=== PATIENT | male | born 1970 | race Caucasian/White ===

== ENCOUNTER 2019-05-13 00:42 | Emergency (ER) | payer OTHER ==
[~2019-05-13] VITALS: Ht 180.3 cm; Wt 95.3 kg
[~2019-05-13 00:42] MED LIST: ALEVE220 MG PO; FLEXERIL PO; NORCO 5-325 TA1 EACH PO
[2019-05-13] MEDS ORDERED: PRILOSEC OTC20 MG PO (00:54)
[2019-05-13] MEDS ORDERED: TYLENOL PM (00:55)
[2019-05-13 01:01] LABS: URINE BILIRUBIN NEGATIVE (Negative); URINE BLOOD TRACE (Negative); URINE CLARITY CLEAR; URINE COLOR YELLOW; URINE GLUCOSE-RANDOM NEGATIVE (Negative); URINE KETONES NEGATIVE (Negative); URINE LEUKOCYTES-REFLEX NEGATIVE (Negative); URINE NITRITE-REFLEX NEGATIVE (Negative); URINE PROTEIN NEGATIVE (Negative); URINE SPECIFIC GRAVITY 1.025 (1.005-1.030); URINE UROBILINOGEN 0.2 E.U./dl (0.2-1.0)
[2019-05-13] MEDS ORDERED: NORCO 7.5-3251 EACH PO (02:25)
[2019-05-13 02:40] VITALS: BP 128/73
== END 2019-05-13 02:43 | disposition home or self-care (01) ==
LOC: M.ERS 00:42
PROVIDERS: Emergency Medicine
DX: R07.81 Pleurodynia (principal); R31.9 Hematuria, unspecified; F17.210 Nicotine dependence, cigarettes, uncomplicated; Z88.6 Allergy status to analgesic agent; Z88.5 Allergy status to narcotic agent

== ENCOUNTER 2019-08-12 09:28 | Emergency (ER) | payer OTHER ==
[~2019-08-12] VITALS: Ht 180.3 cm; Wt 95.3 kg
[~2019-08-12 09:28] MED LIST changes: +NORCO 7.5-3251 EACH PO; +PRILOSEC OTC20 MG PO; +TYLENOL PM
[2019-08-12 10:55] VITALS: BP 130/88
--- NOTE | 2019-08-13 13:09 | EKG ---
[place] [id number] ELECTROCARDIOGRAM REPORT Name: AYSHA WATSON Room: [facility]#: [id number] Admission: 08/12/19 Attend Phys: Discharge: 08/12/19 Date of : 70 Report #: [id number] THIS REPORT FOR: //name// [facility] ED Test Date: 2019-08-12 Test Time: 09:58:20 Pat Name: AYSHA WATSON Department: Room: Gender: M Rose Grower: : 1970 Requested By: Casey Tee Order Number: [id number] MD: Slava Colón Measurements Intervals [place] Rate: 57 P: 55 WV: 173 QRS: 48 QRSD: 98 T: 46 QT: 412 QTc: 401 Interpretive Statements Sinus rhythm ST elev, probable normal early repol pattern Compared to ECG 10/17/2015 07:37:54 ST (T wave) deviation now present Electronically Signed On 08-13-2019 13:08:31 CALL CIRCUIT WORK[employer] by Slava Colón [email or web address] <ELECTRONICALLY SIGNED> By: Slava Colón MD, [facility] 08/13/19 1308 7 Slava Colón MD, FACC /EPI
== END 2019-08-12 10:55 | disposition home or self-care (01) ==
LOC: M.ERS 09:28
DX: S60.041A Contusion of right ring finger without damage to nail, initial encounter (principal); F17.210 Nicotine dependence, cigarettes, uncomplicated; Z88.5 Allergy status to narcotic agent; Z88.6 Allergy status to analgesic agent; X58.XXXA Exposure to other specified factors, initial encounter; Y93.89 Activity, other specified; Y92.89 Other specified places as the place of occurrence of the external cause; Y99.8 Other external cause status